=== PATIENT | female | born 2000 | race Caucasian/White ===

== ENCOUNTER 2022-12-16 11:09 | Emergency (ER) | payer OTHER ==
[2022-12-16] MEDS ORDERED: Lidocaine 1% PF 5 ML VIAL ONE (14:15)
[2022-12-16] MEDS ORDERED: Bupivacaine PF 0.5% 30 ML VIAL ONE (14:15)
[2022-12-16] MEDS ORDERED: Silver Nitrate Application 1 EACH ONE ×2 (14:43→14:57)
[2022-12-16] MEDS ORDERED: Bacitracin 1 PK ONE (14:56)
== END 2022-12-16 15:02 | disposition home or self-care (01) ==
LOC: CSHERS 11:09
DX: L60.0 Ingrowing nail (principal)
CPT/HCPCS: 11765; S0020